=== PATIENT | female | born 1945 | race Two or more races ===

== ENCOUNTER 2020-04-02 07:21 | Outpatient (CLI) | payer OTHER | END 2020-04-02 07:49 | disposition home or self-care (01) | LOC: NUCLEAR 07:21 | PROVIDERS: ATTEND Specialist | DX: I11.9 Hypertensive heart disease without heart failure (principal); I25.89 Other forms of chronic ischemic heart disease; I70.0 Atherosclerosis of aorta; I25.10 Atherosclerotic heart disease of native coronary artery without angina pectoris; E03.8 Other specified hypothyroidism | CPT/HCPCS: 78452; 93017; A9500; J0153 ==

== ENCOUNTER 2024-07-09 07:23 | Outpatient (CLI) | payer OTHER | END 2024-07-09 07:24 | disposition home or self-care (01) | LOC: NUCLEAR 07:23 | PROVIDERS: ATTEND Specialist | DX: I11.9 Hypertensive heart disease without heart failure (principal) | CPT/HCPCS: 78452; 93017; A9500; J0153 ==